=== PATIENT | male | born 1990 | race Caucasian/White ===

== ENCOUNTER 2019-06-14 09:53 | Emergency (ER) | payer MEDICAID ==
[~2019-06-14] VITALS: Ht 190.5 cm; Wt 95.3 kg
[2019-06-14 10:35] VITALS: BP 124/76
--- NOTE | 2019-06-14 10:36 | NUR ---
PATIENT CAME TO ER FOR RIGHT LOWER EXTREMITY PAIN. AAOX4. NAD. NO SOB NOTED. PATIENT CONNECTED TO MONITOR. AWAITING MD ARAUJO. WILL CONTINUE TO MONITOR.
[2019-06-14] MEDS ORDERED: IBUPROFEN 600 MG TABLET PO ONE ×2 (11:00→11:01)
== END 2019-06-14 11:33 | disposition home or self-care (01) ==
LOC: ER 10:01
DX: G57.01 Lesion of sciatic nerve, right lower limb (principal)

== ENCOUNTER 2022-12-19 17:11 | Emergency (ER) | payer SELFPAY ==
[~2022-12-19] VITALS: Ht 188 cm; Wt 103.0 kg
--- NOTE | 2022-12-19 19:04 | NUR ---
patient camein to the er c/o lower back pain from home 3 hours after lifting. On room air, breathing evenly and unlabored. Kept comfortable, will continue to monitor accordingly.
[2022-12-19] MEDS ORDERED: ACETAMINOPHEN ES 500 MG TABLET ONE (19:57)
[2022-12-19] MEDS ORDERED: KETOROLAC TROMETHAMINE INJ 30 MG/ML VIAL ONE (19:57)
[2022-12-19] MEDS ORDERED: LIDOCAINE 5% (PATCH) 1 EA PATCH TP ONE (19:57)
[2022-12-19] MEDS ORDERED: METHOCARBAMOL (500MG) 500 MG TABLET ONE (19:57)
[2022-12-19] MEDS ORDERED: KETOROLAC TROMETHAMINE INJ 30 MG/ML VIAL IM ONE (20:00)
[2022-12-19] MEDS ORDERED: LIDOCAINE 5% (PATCH) 1 EA PATCH TP SCH (20:00)
[2022-12-19] MEDS ORDERED: METHOCARBAMOL (750MG) 750 MG TABLET PO SCH (20:00)
[2022-12-19] MEDS ORDERED: ACETAMINOPHEN ES 500 MG TABLET PO ONE (20:00)
[2022-12-19] MEDS ORDERED: CYCL10TA9 PO (21:07)
[2022-12-19 21:12] VITALS: BP 127/65
--- NOTE | 2022-12-19 21:12 | NUR ---
Patient discharged to home in stable condition. Written and verbal after care instructions given. Patient verbalizes understanding of instruction.
== END 2022-12-19 21:12 | disposition home or self-care (01) ==
LOC: ER 17:18
DX: M54.50 Low back pain, unspecified (principal); M62.830 Muscle spasm of back
CPT/HCPCS: 99283; 96372; J1885